=== PATIENT | male | born 1975 | race African-American/Black ===

== ENCOUNTER 2019-05-13 19:46 | Emergency (ER) | payer OTHER ==
[~2019-05-13] VITALS: Ht 170.2 cm; Wt 95.3 kg
[2019-05-13] MEDS ORDERED: NORCO 5-325 TA1 EAC1 PO (21:34)
[2019-05-13] MEDS ORDERED: CYCLOBENZAPRINE5 MG PO (21:34)
[2019-05-13 22:15] VITALS: BP 144/80
== END 2019-05-13 22:15 | disposition home or self-care (01) ==
LOC: ER 19:46
DX: M54.2 Cervicalgia (principal); M62.830 Muscle spasm of back; M25.512 Pain in left shoulder; V49.49XA Driver injured in collision with other motor vehicles in traffic accident, initial encounter; Y92.89 Other specified places as the place of occurrence of the external cause; Y93.89 Activity, other specified; Y99.8 Other external cause status